=== PATIENT | female | born 1960 | race Caucasian/White ===

== ENCOUNTER 2017-06-24 00:16 | Inpatient (IN) | payer BC ==
[~2017-06-24] VITALS: Ht 180.3 cm; Wt 78.9 kg
[2017-06-24] VITALS (20 sets, daily range): BP systolic 0–171; BP diastolic 0–100
[2017-06-24 00:50] LABS: AMYLASE 33 IU/L (1-118); CHLORIDE 104 mEq/L (99-109); POTASSIUM 2.9 mEq/L (3.7-5.4); SODIUM 139 mEq/L (136-147)
[2017-06-24 00:52] LABS: GLUCOSE 137 mg/dL (70-99)
[2017-06-24 00:53] LABS: ANION GAP 13 MEQ/L (2-14)
[2017-06-24 00:55] LABS: SERUM ETHYL ALCOHOL 259 mg/dL
[2017-06-24 00:56] LABS: GFR ESTIMATE (CALCULATED) > 59 mL/min/
[2017-06-24 00:57] LABS: UREA NITROGEN (BUN) 13 mg/dL (9-23)
[2017-06-24 00:59] LABS: LIPASE 18 U/L (1.0-51.0)
[2017-06-24 01:05] LABS: QUANTITATIVE HCG < 4.0 MIU/ML
[2017-06-24 01:20] LABS: EOSINOPHIL (%) 1.3 % (0-5); EOSINOPHIL COUNT 0.1 K/uL (0-0.3); HEMATOCRIT 34.7 % (36.0-46.0); IMMATURE GRANULOCYTE (%) 0.4 % (0.0-0.7); INSTRUMENT ABS NEUTROPHIL CT 3.8 K/uL; LYMPHOCYTE COUNT 1.3 K/uL (1.0-2.8); MCH 31.9 PG (29.0-34.0); MCHC 35.2 G/DL (30.0-36.0); MCV 90.6 FL (83-99); MEAN PLAT.VOLUME 9.4 uM^3 (9.5-12.4); MONOCYTE (%) 5.9 % (3-12); MONOCYTE COUNT 0.3 K/uL (0-0.8); NEUTROPHIL (%) 68.9 % (45-76); NEUTROPHIL COUNT 3.8 K/uL (1.8-6.4); PLATELET COUNT 202 K/uL (156-360); RBC DIS.WIDTH-CV 12.8 % (11.8-14.6); RBC DIS.WIDTH-SD 41.8 % (39-53); RED BLOOD COUNT 3.83 M/uL (3.80-5.20); WHITE BLOOD COUNT 5.4 K/uL (4.1-10.2)
[2017-06-24 02:13] LABS: ADD MIUA? NO; BILIRUBIN NEGATIVE; BLOOD NEGATIVE; COLOR COLORLESS ((YELLOW)); GLUCOSE (STRIP) NEGATIVE; KETONES NEGATIVE; LEUKOCYTES NEGATIVE; NITRITE NEGATIVE; PROTEIN (STRIP) NEGATIVE; SPECIFIC GRAVITY 1.015 (1.000-1.030); UCUL ADDED? NO; UROBILINOGEN 0.2 MG/DL (0.2-1.0)
[2017-06-24 02:37] LABS: AMPHETAMINE NEGATIVE (500 ng/mL); BARBITURATES NEGATIVE (200 ng/mL); BENZODIAZEPINES NEGATIVE (150 ng/mL); COCAINE NEGATIVE (150 ng/mL); INTERNAL CONTROLS VALID? YES; METHADONE NEGATIVE (200 ng/mL); METHAMPHETAMINE NEGATIVE (500 ng/mL); OPIATES (MORPHINE) NEGATIVE (100 ng/mL); OXYCODONE NEGATIVE (100 ng/mL); PHENCYCLIDINE NEGATIVE (25 ng/mL); PROPOXYPHENE NEGATIVE (300 ng/mL); THC CANNABINOIDS NEGATIVE (50 ng/mL); TRICYCLIC ANTIDEPRESSANTS NEGATIVE (300 ng/mL)
[2017-06-24 05:45] LABS: METH RESISTANT S AUREUS PCR NEGATIVE (NEGATIVE); PROBE CHECK PASS; SPECIMEN PROCESSING CONTROL PASS
[2017-06-24 07:14] LABS: HEMATOCRIT 33.1 % (36.0-46.0); MCH 31.5 PG (29.0-34.0); MCHC 35.3 G/DL (30.0-36.0); MCV 89.2 FL (83-99); MEAN PLAT.VOLUME 8.8 uM^3 (9.5-12.4); PLATELET COUNT 217 K/uL (156-360); RBC DIS.WIDTH-CV 12.7 % (11.8-14.6); RBC DIS.WIDTH-SD 41.2 % (39-53); RED BLOOD COUNT 3.71 M/uL (3.80-5.20); WHITE BLOOD COUNT 6.8 K/uL (4.1-10.2)
[2017-06-24 07:39] LABS: ALKALINE PHOSPHATASE 81 IU/L (3-129); ANION GAP 12 MEQ/L (2-14); CHLORIDE 101 MEQ/L (99-109); GFR ESTIMATE (CALCULATED) > 59 mL/min/; GLUCOSE 117 mg/dL (70-99); SAMPLE HEMOLYSIS CHECK 0; SAMPLE ICTERIC CHECK 0; SAMPLE LIPEMIA CHECK 0; SODIUM 137 MEQ/L (136-147); TOTAL BILIRUBIN 0.6 MG/DL (0.0-1.0); UREA NITROGEN (BUN) 8 mg/dL (9-23)
[2017-06-24 07:40] LABS: MAGNESIUM 1.5 mg/dl (1.3-2.7)
[2017-06-24 07:51] LABS: POTASSIUM 3.8 MEQ/L (3.7-5.4)
[2017-06-24] MEDS ORDERED: PLAQUENIL200 MG PO (08:56)
[2017-06-24 13:06] LABS: MAGNESIUM 2.7 mg/dL (1.3-2.7)
[2017-06-24] MEDS ORDERED: METHOTREXATE2.5 MG IM (16:44)
[2017-06-24] MEDS ORDERED: ORENCIA50 MG/0.4 IV (16:46)
[2017-06-25 04:14] VITALS: BP 134/94
[2017-06-25 05:23] LABS: MCH 31.7 PG (29.0-34.0); MCHC 35.3 G/DL (30.0-36.0); MCV 89.8 FL (83-99); MEAN PLAT.VOLUME 9.1 uM^3 (9.5-12.4); PLATELET COUNT 240 K/uL (156-360); RBC DIS.WIDTH-CV 12.7 % (11.8-14.6); RBC DIS.WIDTH-SD 41.6 % (39-53); RED BLOOD COUNT 4.01 M/uL (3.80-5.20); WHITE BLOOD COUNT 6.9 K/uL (4.1-10.2)
[2017-06-25 06:07] LABS: ANION GAP 9 MEQ/L (2-14); CHLORIDE 100 MEQ/L (99-109); GFR ESTIMATE (CALCULATED) > 59 mL/min/; GLUCOSE 123 mg/dL (70-99); SAMPLE HEMOLYSIS CHECK 0; SAMPLE ICTERIC CHECK 0; SAMPLE LIPEMIA CHECK 0; SODIUM 136 MEQ/L (136-147); UREA NITROGEN (BUN) 10 mg/dL (9-23)
[2017-06-25 06:12] LABS: POTASSIUM 4.7 MEQ/L (3.7-5.4)
[2017-06-25 09:20] VITALS: BP 176/80
[2017-06-25 12:04] VITALS: BP 168/85
[2017-06-25 20:19] VITALS: BP 160/84
[2017-06-25 23:40] VITALS: BP 164/72
[2017-06-26 03:39] VITALS: BP 131/67
[2017-06-26 08:21] VITALS: BP 138/62
[2017-06-26] MEDS ORDERED: SENNA LAX8.6 MG PO (12:46)
[2017-06-26] MEDS ORDERED: LOPRESSOR25 MG PO (12:46)
[2017-06-26] MEDS ORDERED: LOSARTAN POTASS50 MG PO (12:46)
[2017-06-26] MEDS ORDERED: TRAMADOL HCL50 MG PO (12:58)
[2017-06-26] MEDS ORDERED: FLEXERIL10 MG PO (12:59)
[2017-06-26] MEDS ORDERED: RASUVO 1010 MG/0.2 IM (13:02)
== END 2017-06-26 15:02 | disposition home or self-care (01) | DRG 83 ==
LOC: EME 00:16 → TRA 00:16 → EDBD 00:16 → 3EAST 02:22 → 4WEST 02:22 → EDOF 02:22 → ENRESERV 02:23 → 4WEST 04:23 → ENRESERV 17:11 → 3EAST 19:37
PROVIDERS: Emergency Medicine; Surgery
DX: S06.5X3A Traumatic subdural hemorrhage with loss of consciousness of 1 hour to 5 hours 59 minutes, initial encounter (principal); M48.56XA Collapsed vertebra, not elsewhere classified, lumbar region, initial encounter for fracture; F33.9 Major depressive disorder, recurrent, unspecified; S02.19XA Other fracture of base of skull, initial encounter for closed fracture; S02.40FA Zygomatic fracture, left side, initial encounter for closed fracture; S01.01XA Laceration without foreign body of scalp, initial encounter; W10.9XXA Fall (on) (from) unspecified stairs and steps, initial encounter; F10.129 Alcohol abuse with intoxication, unspecified; Y90.8 Blood alcohol level of 240 mg/100 ml or more; M06.9 Rheumatoid arthritis, unspecified; E87.6 Hypokalemia; E83.42 Hypomagnesemia; F17.210 Nicotine dependence, cigarettes, uncomplicated; I10 Essential (primary) hypertension; I49.3 Ventricular premature depolarization; F43.20 Adjustment disorder, unspecified; R40.2412 Glasgow coma scale score 13-15, at arrival to emergency department; F07.81 Postconcussional syndrome; G44.319 Acute post-traumatic headache, not intractable; R91.1 Solitary pulmonary nodule; Z98.84 Bariatric surgery status; Y92.038 Other place in apartment as the place of occurrence of the external cause; Z80.3 Family history of malignant neoplasm of breast; Z82.49 Family history of ischemic heart disease and other diseases of the circulatory system; D64.9 Anemia, unspecified
CPT/HCPCS: 70450; 71260; 72125; 72129; 72132; 74177; 80048; 80053; 81003; 82150; 82330; 83690; 83735; 84100; 84702; 85025; 85027; 86900; 86901; 87641; 92523 GN; 93005; 93306; 99281; 99285; G0480; J0360; J1170; J2405; J2765; J3475; J3480; J7030; Q0169; S0028